=== PATIENT | male | born 1990 | race African-American/Black ===

== ENCOUNTER 2016-06-06 04:05 | Emergency (ER) | payer OTHER ==
[~2016-06-06] VITALS: Ht 170.2 cm; Wt 95.3 kg
[~2016-06-06 04:05] MED LIST: KEFLEX500 MG ORAL; NO HOME MEDS
[2016-06-06 04:30] VITALS: BP 118/78
[2016-06-06] MEDS ORDERED: KENALOG 0.025%15 GM APPLIC (04:39)
[2016-06-06] MEDS ORDERED: ACYCLOVIR800 MG ORAL (04:39)
[2016-06-06 04:51] VITALS: BP 118/78
--- NOTE | 2016-06-09 14:10 | Emergency Room Report ---
History of Present Illness General Chief Complaint: Male Urogenital Problems Source: Patient Present Illness HPI 25-year-old male presents to ED for evaluation of rash. Patient has rash to his perineal area x3 days. States was initially red and itchy but has since improved. Has not gone away completely but is healing. Denies any discharge. Denies any fevers or chills. Denies any known food or drug allergies. States he's been sexually active unprotected with multiple partners. Denies recent travel. No other aggravating or relieving factors. Denies any other associated symptom Allergies: Coded Allergies: No Known Allergies (Verified Allergy, Unknown, 02/27/06) Patient History Past Medical History: none Past Surgical History: none Pertinent Family History: none Social History: Denies: alcohol use, drug use, smoking Immunizations: UTD Reviewed Nursing Documentation: PMH: Agreed, PSxH: Agreed Nursing Documentation-PMH Past Medical History: No Stated History Review of Systems All Other Systems: negative except mentioned in HPI Physical Exam Vital Signs Date Time Temp Pulse Resp B/P Pulse Ox O2 Delivery O2 Flow Rate FiO2 06/06/16 04:17 97.9 71 14 118/78 98 Room Air Sp02 EP Interpretation: reviewed, normal General Appearance: no apparent distress, alert, GCS 15, non-toxic Head: normocephalic Eyes: bilateral eye PERRL, bilateral eye normal inspection ENT: normal ENT inspection Neck: normal inspection Respiratory: normal inspection Cardiovascular #1: normal inspection Gastrointestinal: normal inspection Rectal: deferred Genitourinary: no CVA tenderness, penis normal, scrotum normal Musculoskeletal: normal inspection Neurologic: alert, oriented x3, responsive, motor strength/tone normal, sensory intact, speech normal Psychiatric: normal inspection Skin: rash - healing macular rash to perineal area. nonerythematous. no discharge Lymphatic: normal inspection Medical Decision Making Diagnostic Impression: Primary Impression: Perineal rash, male ER Course Hospital Course 25-year-old male presents to ED with rash to perineal area Differential diagnoses include: Cellulitis, dermatitis, insect bite, abscess Clinical course Patient placed on stretcher. After initial history, physical exam reveals a young male in no acute distress. On exam there are multiple macular circular lesions noted to the perineal area. appears to be in healing stage. nonerythematous. likely STI related Diagnosis - perineal rash stable and discharged to home with prescription for acyclovir, triamcinolone. Instructed to followup with PMD. Instructed return to ED if symptoms recur or worsen Last Vital Signs Date Time Temp Pulse Resp B/P Pulse Ox O2 Delivery O2 Flow Rate FiO2 06/06/16 04:51 97.9 80 14 118/78 98 Room Air Status: improved Disposition: HOME, SELF-CARE Condition: Stable Scripts Acyclovir* (ZOVIRAX*) 800 Mg Tablet 800 MG ORAL FIVE TIMES A DAY for 7 Days, TAB Prov: GARFIELD GUEVARA M.D. 06/06/16 Triamcinolone Acet (Triamcinolone Acetonide) 15 Gm Cream..g. 15 GM APPLIC BID, #15 GM Prov: GARFIELD GUEVARA M.D. 06/06/16 Referrals: [facility],REFERRING (PCP) Patient Instructions: Genital Warts GARFIELD GUEVARA M.D. Jun 09, 2016 14:10
== END 2016-06-06 04:55 | disposition home or self-care (01) ==
LOC: EMR 04:26
DX: R21 Rash and other nonspecific skin eruption (principal)
CPT/HCPCS: 99284

== ENCOUNTER 2018-11-13 07:57 | Emergency (ER) | payer SELFPAY ==
[~2018-11-13] VITALS: Ht 167.6 cm; Wt 72.6 kg
[~2018-11-13 07:57] MED LIST changes: +ACYCLOVIR800 MG ORAL; +KENALOG 0.025%15 GM APPLIC
[2018-11-13 08:10] VITALS: BP 117/81
--- NOTE | 2018-11-13 08:10 | NUR ---
ED Nurse Note: ambulated into ED, reporting burning sensation while urinating and having whitish/yellowish discharge today. Pt reports having unprotected sex a week ago. a/ox4. NAD noted.
[2018-11-13] MEDS ORDERED: NKM (08:11)
--- NOTE | 2018-11-13 08:24 | Emergency Room Report ---
History of Present Illness General Chief Complaint: Male Urogenital Problems Source: Patient Present Illness HPI Patient presents with discharge after having unprotected sex about a week ago. He denies any fevers or lymphadenopathy. There is minimal dysuria. Patient denies medical problems. No fevers, chills, sore throat, chest pain, palpitations, nausea, vomiting, diarrhea, dysuria, abdominal pain, shortness of breath, joint pain, rashes, depression, anxiety, visual changes, headache. 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 He believes that one such encounter led to this problem. He denies HIV. Allergies: Coded Allergies: No Known Allergies (Verified Allergy, Unknown, 02/27/06) Patient History Past Medical History: see triage record Social History: Reports: smoking, drug use Social History Narrative Rapper Reviewed Nursing Documentation: PMH: Agreed; PSxH: Agreed Nursing Documentation-PM Past Medical History: No Stated History Review of Systems All Other Systems: negative except mentioned in HPI Physical Exam Vital Signs Date Time Temp Pulse Resp B/P (MAP) Pulse Ox O2 Delivery O2 Flow Rate FiO2 11/13/18 08:08 97.5 85 19 117/81 (93) 99 Room Air Sp02 EP Interpretation: reviewed, normal General Appearance: well appearing, no apparent distress, GCS 15 Head: normocephalic Eyes: bilateral eye normal inspection, bilateral eye PERRL ENT: moist mucus membranes Respiratory: normal inspection, speaking full sentences Cardiovascular #1: regular rate, rhythm Cardiovascular #2: 2+ radial (R) Gastrointestinal: normal inspection, non tender Genitourinary: no CVA tenderness, penis normal, scrotum normal, other - Circumcised no tenderness Musculoskeletal: gait/station normal Neurologic: alert, oriented x3, grossly normal Psychiatric: mood/affect normal Skin: other - Tattoos Lymphatic: no adenopathy Medical Decision Making Diagnostic Impression: Primary Impression: Urethritis Additional Impression: Possible exposure to STD ER Course Patient presents with discharge after unprotected sex. Differential includes chlamydia, gonorrhea amongst others. Urinalysis is indicated with chlamydia and GC testing. The patient will be treated with Rocephin and azithromycin. I advised the patient that he needs to wear protection in the future and also that he needs to follow-up to have further testing. Stable for outpatient observation and treatment. Laboratory Tests Test 11/13/18 08:10 11/13/18 08:20 Urine Color Yellow Urine Appearance Slightly cloudy Urine pH 5 (4.5-8.0) Urine Specific [place] 1.030 (1.005-1.035) Urine Protein 2+ (NEGATIVE) H Urine Glucose (UA) Negative (NEGATIVE) Urine Ketones 1+ (NEGATIVE) H Urine Blood 2+ (NEGATIVE) H Urine Nitrite Negative (NEGATIVE) Urine Bilirubin 1+ (NEGATIVE) H Urine Ictotest Negative (NEGATIVE) Urine Urobilinogen 4 MG/DL (0.0-1.0) H Urine Leukocyte Esterase 2+ (NEGATIVE) H Urine RBC 2-4 /HPF (0 - 0) H Urine WBC 20-30 /HPF (0 - 0) H Urine Squamous Epithelial Cells Occasional /LPF Urine Bacteria Few /HPF (NONE) Urine Mucus Moderate /LPF (NONE/OCC) H Chlamydia trachomatis RNA Pending Neisseria gonorrhoeae RNA Pending Last Vital Signs Date Time Temp Pulse Resp B/P (MAP) Pulse Ox O2 Delivery O2 Flow Rate FiO2 11/13/18 08:42 97.5 78 19 117/81 99 Room Air Status: improved Disposition: HOME, SELF-CARE Condition: Improved Referrals: [facility]/,REFERRING (PCP) Demetrius Rea MD Nov 13, 2018 08:24
[2018-11-13] MEDS ORDERED: Azithromycin 250mg tab ORAL SCH (08:30)
[2018-11-13] MEDS ORDERED: Lidocaine 1% MPF 10mg/ml 5ml INJ ONE (08:30)
[2018-11-13] MEDS ORDERED: Lidocaine 1% MPF 10mg/ml 5ml INJ SCH (08:30)
[2018-11-13] MEDS ORDERED: Azithromycin 250mg tab ORAL ONE (08:30)
[2018-11-13 08:32] LABS: APPEARANCE,URINE SLIGHTLY CLOUDY; BILIRUBIN, URINE 1+ (NEGATIVE); GLUCOSE, URINE (UA) NEGATIVE (NEGATIVE); KETONES,URINE 1+ (NEGATIVE); LEUKOCYTE ESTERASE ,URINE 2+ (NEGATIVE); NITRITE,URINE NEGATIVE (NEGATIVE); PH,URINE 5 (4.5-8.0); PROTEIN,URINE 2+ (NEGATIVE); UROBILINOGEN,URINE 4 MG/DL (0.0-1.0)
[2018-11-13 08:42] VITALS: BP 117/81
--- NOTE | 2018-11-13 08:43 | NUR ---
ED Nurse Note: Pt cleared by health care Provider for discharge. DC instructions/prescription was given and explained to pt and verbalized understanding of teachings. All medical deviecs such as ID band removed. Pt is AAO x4, ambulatory and left with all personal belongings.
[2018-11-13 08:47] LABS: COLOR,URINE YELLOW
== END 2018-11-13 08:43 | disposition home or self-care (01) ==
LOC: EMR 08:16
DX: N34.2 Other urethritis (principal); Z20.2 Contact with and (suspected) exposure to infections with a predominantly sexual mode of transmission; Z87.891 Personal history of nicotine dependence
CPT/HCPCS: 81003; 87086; 87491; 87590; 96372; 99283; J0696

== ENCOUNTER 2019-03-07 04:42 | Emergency (ER) | payer SELFPAY ==
[~2019-03-07] VITALS: Ht 172.7 cm; Wt 86.2 kg
[~2019-03-07 04:42] MED LIST changes: +NKM
[2019-03-07 04:56] VITALS: BP 106/62
--- NOTE | 2019-03-07 04:59 | NUR ---
ED Nurse Note: Patient walked in to ER c/o boil on his left buttox. AAO x4, VSS at this time.
[2019-03-07] MEDS ORDERED: BACTRIM DS TAB1 EAC1 ORAL (05:25)
[2019-03-07] MEDS ORDERED: MUPIROCIN22 GM TOPIC (05:25)
--- NOTE | 2019-03-07 05:25 | Emergency Room Report ---
History of Present Illness General Chief Complaint: General Complaint Source: Patient Present Illness HPI This a 28-year-old male with no past medical history. He presents with chief complaint of a boil to his left buttock. Onset for last 4 days. He tried to pop it and has little bit of drainage but now more swollen. Painful to sit on it. No fever chills but no nausea no vomiting. Never had this problem before. Allergies: Coded Allergies: No Known Allergies (Verified Allergy, Unknown, 02/27/06) Patient History Past Medical History: see triage record, old chart reviewed Past Surgical History: none Pertinent Family History: none Social History: Denies: smoking Immunizations: other Reviewed Nursing Documentation: PMH: Agreed; PSxH: Agreed Nursing Documentation-PMH Past Medical History: No Stated History Review of Systems Eye: Denies: eye pain, blurred vision ENT: Denies: ear pain, nose congestion, throat swelling Respiratory: Denies: cough, shortness of breath Cardiovascular: Denies: chest pain, palpitations Gastrointestinal: Denies: abdominal pain, diarrhea, nausea, vomiting Musculoskeletal: Denies: back pain, joint pain Skin: Denies: rash Neurological: Denies: headache, numbness Endocrine: Denies: increased thirst, increased urine Hematologic/Lymphatic: Denies: easy bruising All Other Systems: negative except mentioned in HPI Physical Exam Vital Signs Date Time Temp Pulse Resp B/P (MAP) Pulse Ox O2 Delivery O2 Flow Rate FiO2 03/07/19 04:47 98.1 112 18 106/62 (77) 95 Room Air Vitals unremarkable Sp02 EP Interpretation: reviewed, normal General Appearance: well appearing, no apparent distress, alert Head: normocephalic, atraumatic Eyes: bilateral eye PERRL, bilateral eye EOMI ENT: hearing grossly normal, normal pharynx Neck: full range of motion, supple, no meningismus Respiratory: chest non-tender, lungs clear, normal breath sounds Cardiovascular #1: regular rate, rhythm, no murmur Gastrointestinal: normal bowel sounds, non tender, no mass, no organomegaly, no bruit, non-distended Rectal: other - Left buttock: There is an indurated area of 3 cm with central ulceration. Musculoskeletal: back normal, normal range of motion, gait/station normal Psychiatric: mood/affect normal Procedures Incision and Drainage Incision and Drainage : Consent: Verbal Site: Buttock Blade Size: 11 I & D Procedure: betadine prep Wound Location: other - buttock Patient Tolerated: Well Complications: None Progress Area cleaned with Betadine. Local anesthetic with 1% pain with epinephrine. I injected about 2 cc. I made a 2 cm incision. Moderate met of pus expressed. Loculated area broken up. Area irrigated. Patient tolerated procedure without any problem. Wound dressed. Medical Decision Making Diagnostic Impression: Primary Impression: Abscess ER Course This patient presents with a superficial abscess. No deep infection. No necrotizing fasciitis. Will discharge home. Last Vital Signs Date Time Temp Pulse Resp B/P (MAP) Pulse Ox O2 Delivery O2 Flow Rate FiO2 03/07/19 04:56 98.1 18 106/62 95 Room Air 03/07/19 04:56 112 Status: improved Disposition: HOME, SELF-CARE Condition: Stable Scripts Mupirocin* (MUPIROCIN*) 22 Gm Oint...g. 1 APPLIC TOPIC THREE TIMES A DAY, #22 GM Prov: Dorian Sandhu MD 03/07/19 Trimethoprim/Sulfamethoxazole 160/800* (BACTRIM DS TABLET*) 1 Each Tablet 1 TAB ORAL Q12H, #14 TAB 0 Refills Prov: Dorian Sandhu MD 03/07/19 Additional Instructions: Keep wound clean. Clean first with hydrogen peroxide. Then apply antibiotic ointment. Then put on a large Band-Aid. Follow-up for recheck in 3 to 5 days. Return if symptoms worsen. Dorian Sandhu MD Mar 07, 2019 05:25
[2019-03-07 05:27] VITALS: BP 125/67
[2019-03-07] MEDS ORDERED: Bactrim-DS 1 tab ORAL ONE (05:30)
== END 2019-03-07 05:28 | disposition home or self-care (01) ==
LOC: EMR 05:21
DX: L02.31 Cutaneous abscess of buttock (principal)
CPT/HCPCS: 99283

== ENCOUNTER → 2019-05-03 | Emergency (ER) | payer SELFPAY ==
[~2019-05-03] VITALS: Ht 172.7 cm; Wt 86.2 kg
[~2019-05-03] MED LIST changes: +BACTRIM DS TAB1 EAC1 ORAL; +CEPHALEXIN500 MG ORAL; +IBUPROFEN600 MG ORAL; +MUPIROCIN22 GM TOPIC
--- NOTE | 2019-05-03 11:20 | NUR ---
ED Nurse Note: Pt ambulated to ed c/o lower right back boil. pt states boil popped on its on and is bleeding and now it hurts. Placed on bed
[2019-05-03 11:44] VITALS: BP 144/95
--- NOTE | 2019-05-03 12:16 | Emergency Room Report ---
History of Present Illness General Chief Complaint: Skin Rash/Abscess Source: Patient Present Illness HPI 28-year-old male presents with right butt cheek pain x1 week patient was seen in outside hospital no acute indications for antibiotics they stated that he may have cellulitis and may develop an abscess later on patient now presents today for drainage, no fevers no chills patient presents for evaluation he endorses right sharp buttock pain aggravated with touching it alleviated by not touching it severity is moderate, intermittent Allergies: Coded Allergies: No Known Allergies (Verified Allergy, Unknown, 02/27/06) Patient History Past Medical History: see triage record Reviewed Nursing Documentation: PMH: Agreed; PSxH: Agreed Nursing Documentation-PMH Past Medical History: No Stated History Review of Systems All Other Systems: negative except mentioned in HPI Physical Exam Vital Signs Date Time Temp Pulse Resp B/P (MAP) Pulse Ox O2 Delivery O2 Flow Rate FiO2 05/03/19 11:15 98.2 94 16 144/95 (111) 100 Room Air General Appearance: well appearing, no apparent distress Head: normocephalic, atraumatic ENT: hearing grossly normal, normal voice Neck: full range of motion, supple Respiratory: no respiratory distress, speaking full sentences Neurologic: alert, normal gait Psychiatric: mood/affect normal Skin: other - Right buttock, abscess present measuring 2 x 2 cm Procedures Incision and Drainage Incision and Drainage : Consent: Verbal Site: Right Buttock Blade Size: 11 I & D Procedure: betadine prep, sterile drapes applied, sterile dressing applied, gauze wick placed Wound Location: other - Right buttock Wound's Depth, Shape: superficial Wound Length (cm): 2 Wound Explored: Pus inside Irrigated w/ Saline (ccs): 100 Anesthesia: 1% Lidocaine Volume Anesthetic (ccs): 10 Patient Tolerated: Well Complications: None Medical Decision Making Diagnostic Impression: Primary Impression: Abscess of buttock, right ER Course 28-year-old male presents with right buttock pain differential diagnosis includes cellulitis, abscess, Patient with an abscess incision and drainage tolerated the procedure well packing placed Disposition home with return precautions packing removal in 3 days Last Vital Signs Date Time Temp Pulse Resp B/P (MAP) Pulse Ox O2 Delivery O2 Flow Rate FiO2 05/03/19 11:44 98.2 16 144/95 100 Room Air 05/03/19 11:15 94 Disposition: HOME, SELF-CARE Condition: Stable Scripts Trimethoprim/Sulfamethoxazole 160/800* (BACTRIM DS TABLET*) 1 Each Tablet 1 TAB ORAL Q12H, #20 TAB 0 Refills Prov: Avelino Berg MD 05/03/19 Referrals: [facility] Brent Rezape[facility] Patient Instructions: Abscess Additional Instructions: The patient was provided with discharge instructions, notified to follow-up with a primary care doctor and or specialist in the next 24-48 hours, and to return to the ED if they have worsening of their symptoms. Please note that this report is being documented using DRAGON technology. This can lead to erroneous entry secondary to incorrect interpretation by the dictating instrument. Please return to the emergency room 05/06/2019 for packing removal Avelino Berg MD May 03, 2019 12:16
[2019-05-03 12:18] VITALS: BP 142/94
--- NOTE | 2019-05-03 12:18 | NUR ---
ER DISCHARGE NOTE: Patient is cleared to be discharged per ERMD, pt is aox4, on room air, with stable vital signs. pt was given dc and prescription instructions, pt was able to verbalize understanding, pt id band removed. pt is able to ambulate with steady gait. pt took all belongings.
== END | disposition home or self-care (01) ==
LOC: EMR 12:14
DX: L02.31 Cutaneous abscess of buttock (principal)
CPT/HCPCS: 99283

== ENCOUNTER 2019-05-04 19:43 | Emergency (ER) | payer SELFPAY ==
[~2019-05-04] VITALS: Ht 172.7 cm; Wt 86.2 kg
[~2019-05-04 19:43] MED LIST changes: -CEPHALEXIN500 MG ORAL; -IBUPROFEN600 MG ORAL
[2019-05-04 19:55] VITALS: BP_SYST 122; BP_SYST 132; BP_DIAS 82; BP_DIAS 85
--- NOTE | 2019-05-04 19:55 | NUR ---
ED Nurse Note: Patient walked in from home d/t right buttock boil, pt was in [facility] ER yesterday and boil was drained and packed. Patient aao x 4 and ambulatory with steady gait. Patient states boil is still bleeding and is very painful 9/10 aching pain. Patient stable upon assessment.
--- NOTE | 2019-05-04 20:09 | NUR ---
ED Nurse Note: ERMD at bedside.
[2019-05-04] MEDS ORDERED: CEPHALEXIN500 MG ORAL (20:13)
[2019-05-04] MEDS ORDERED: IBUPROFEN600 MG ORAL (20:13)
--- NOTE | 2019-05-04 20:18 | Emergency Room Report ---
History of Present Illness General Chief Complaint: Skin Rash/Abscess Source: Patient Present Illness HPI Patient is a 28-year-old male denies any significant past medical history who presents to the ER complaining of right buttock pain. Patient states that he had a boil there for the past week and had it "popped" here yesterday. Patient was given Bactrim as well as topical antibiotics. Patient was supposed to return in 2 days but returned today because his gauze soaked through. He complains of localized pain to the area. He denies any fever or chills. He denies any worsening of symptoms. Allergies: Coded Allergies: No Known Allergies (Verified Allergy, Unknown, 02/27/06) Patient History Past Medical History: none Past Surgical History: none Nursing Documentation-PM Past Medical History: No Stated History Hx Cardiac Problems: No Hx Hypertension: No Hx Pacemaker: No Hx Asthma: No Hx COPD: No Hx Diabetes: No Hx Cancer: No Hx Gastrointestinal Problems: No Hx Dialysis: No History Of Psychiatric Problem: No Hx Neurological Problems: No Hx Cerebrovascular Accident: No Hx Seizures: No Review of Systems All Other Systems: negative except mentioned in HPI Physical Exam Vital Signs Date Time Temp Pulse Resp B/P (MAP) Pulse Ox O2 Delivery O2 Flow Rate FiO2 05/04/19 19:55 99.0 87 20 132/85 98 Room Air Sp02 EP Interpretation: reviewed, normal General Appearance: no apparent distress, alert, GCS 15, non-toxic Head: normocephalic, atraumatic Eyes: bilateral eye normal inspection, bilateral eye PERRL ENT: hearing grossly normal, normal pharynx, no angioedema, normal voice Neck: full range of motion, supple/symm/no masses Respiratory: chest non-tender, lungs clear, normal breath sounds, speaking full sentences Cardiovascular #1: regular rate, rhythm, no edema Gastrointestinal: normal bowel sounds, non tender, soft, non-distended, no guarding, no rebound Rectal: deferred, other - Right buttock abscess with packing in place mild tenderness to palpation with bloody purulent discharge, Disability Attorney by YUNIER Uriarte Genitourinary: normal inspection, no CVA tenderness Musculoskeletal: back normal, normal range of motion, calf tenderness, gait/ station normal, non-tender Neurologic: alert, motor strength/tone normal, oriented x3, sensory intact, responsive, speech normal Psychiatric: judgement/insight normal, memory normal, mood/affect normal, no suicidal/homicidal ideation Medical Decision Making Diagnostic Impression: Primary Impression: Abscess of buttock, right ER Course I remove the packing and expressed more purulent discharge from the abscess. Patient states that it felt better after that. Wound was cleaned and repacked. Patient advised to return to the ER in 2 days for packing removal and wound care. Patient already on Bactrim. I have given him a prescription for Keflex as well as Motrin for pain relief. After discussing risks and benefits of further diagnostics, treatment plans, as well as indications for and risks of admission, the patient is agreeable to being discharged home. I have explained that their evaluation and treatment in the emergency department today is an important step towards them achieving better health but that their evaluation today is not intended to replace further evaluation and treatment by a physician in their local clinic. I have explained that while the current findings suggest no immediate life threatening emergency they will require further evaluation and treatment by a physician of their choice in their area. They understand that it will be necessary for them to review the final reports of their ED visit with their clinic physician. We have reviewed indications for return to the Emergency Department. I have explained that additional time may need to pass and/or additional testing as an outpatient may be necessary before a definitive diagnosis can be made. They tell me they are willing to follow up as instructed within the timeframe I recommend. They appear to understand what we discussed. Additionally they understand that if they are unable to be seen by an outpatient physician they are welcome, and in fact should, return to the Emergency Department for a repeat evaluation. The patient is stable at time of discharge. Last Vital Signs Date Time Temp Pulse Resp B/P (MAP) Pulse Ox O2 Delivery O2 Flow Rate FiO2 05/04/19 19:56 98.4 95 17 114/67 (83) 97 Room Air Disposition: HOME, SELF-CARE Condition: Stable Scripts Ibuprofen* (MOTRIN*) 600 Mg Tablet 600 MG ORAL Q8H PRN for For Pain, #30 TAB 0 Refills Prov: Rebeca Loomis M.D. 05/04/19 Cephalexin* (KEFLEX*) 500 Mg Capsule 500 MG ORAL EVERY 6 HOURS for 10 Days, CAP Prov: Rebeca Loomis M.D. 05/04/19 Referrals: [facility] Brent Méndez. [facility] Patient Instructions: Abscess Additional Instructions: The patient was provided with discharge instructions, notified to follow-up with a primary care doctor and or specialist in the next 24-48 hours, and to return to the ED if they have worsening of their symptoms. Please note that this report is being documented using DRAGON technology. This can lead to erroneous entry secondary to incorrect interpretation by the dictating instrument. Rebeca Loomis M.D. May 04, 2019 20:18
[2019-05-04 20:20] VITALS: BP 115/78
--- NOTE | 2019-05-04 20:20 | NUR ---
ER DISCHARGE NOTE: Patient is cleared to be discharged per ERMD, pt is aox4, on room air, with stable vital signs. pt was given dc and prescription instructions, pt was able to verbalize understanding, pt id band removed. pt is able to ambulate with steady gait. pt took all belongings. pt stable upon discharge.
== END 2019-05-04 20:20 | disposition home or self-care (01) ==
LOC: EMR 20:16
DX: L02.31 Cutaneous abscess of buttock (principal)
CPT/HCPCS: 99281

== ENCOUNTER 2019-08-07 04:59 | Emergency (ER) | payer SELFPAY ==
[~2019-08-07] VITALS: Ht 172.7 cm; Wt 77.1 kg
[~2019-08-07 04:59] MED LIST changes: +CEPHALEXIN500 MG ORAL; +IBUPROFEN600 MG ORAL
[2019-08-07 05:00] VITALS: BP 123/74
--- NOTE | 2019-08-07 05:27 | Emergency Room Report ---
History of Present Illness General Chief Complaint: Male Urogenital Problems Source: Patient Present Illness [facility] This is a 28-year-old male with no medical problems. He presents with chief plaint of penile discharge. Onset for last couple days. Harris were to urinate. Discharge is yellowish in nature. He has been sexually active with multiple partners. Unprotected sex. History of STD in the past. Denies any other complaint. Urinating made it worse. Allergies: Coded Allergies: No Known Allergies (Verified Allergy, Unknown, 02/27/06) COVID-19 Screening Contact w/high risk pt: No Recent Travel to affected area: No Experienced COVID-19 symptoms?: No COVID-19 Testing performed [employer]: No Patient History Past Medical History: see triage record, old chart reviewed Past Surgical History: none Pertinent Family History: none Social History: Denies: smoking Immunizations: other Reviewed Nursing Documentation: PMH: Agreed; PSxH: Agreed Nursing Documentation-PMH Hx Cardiac Problems: No Hx Hypertension: No Hx Pacemaker: No Hx Asthma: No Hx COPD: No Hx Diabetes: No Hx Cancer: No Hx Gastrointestinal Problems: No Hx Dialysis: No Hx Neurological Problems: No Hx Cerebrovascular Accident: No Hx Seizures: No Review of Systems Eye: Denies: eye pain, blurred vision ENT: Denies: ear pain, nose congestion, throat swelling Respiratory: Denies: cough, shortness of breath Cardiovascular: Denies: chest pain, palpitations Gastrointestinal: Denies: abdominal pain, diarrhea, nausea, vomiting Genitourinary: Reports: discharge, dysuria Musculoskeletal: Denies: back pain, joint pain Skin: Denies: rash Neurological: Denies: headache, numbness Endocrine: Denies: increased thirst, increased urine Hematologic/Lymphatic: Denies: easy bruising All Other Systems: negative except mentioned in HPI Physical Exam Vital Signs Date Time Temp Pulse Resp B/P (MAP) Pulse Ox O2 Delivery O2 Flow Rate FiO2 08/07/19 05:03 97.3 82 16 118/78 (91) 97 Room Air Vitals normal Sp02 EP Interpretation: reviewed, normal General Appearance: well appearing, no apparent distress, alert Head: normocephalic, atraumatic Eyes: bilateral eye PERRL, bilateral eye EOMI ENT: hearing grossly normal, normal pharynx Neck: full range of motion, supple, no meningismus Respiratory: chest non-tender, lungs clear, normal breath sounds Cardiovascular #1: regular rate, rhythm, no murmur Gastrointestinal: normal bowel sounds, non tender, no mass, no organomegaly, no bruit, non-distended Musculoskeletal: back normal, normal range of motion, gait/station normal Psychiatric: mood/affect normal Medical Decision Making Diagnostic Impression: Primary Impression: Urethritis ER Course This patient presents with acute urethritis. Most likely gonorrhea in nature. No evidence of systemic spread. Recommend outpatient testing for HIV, hepatitis , syphilis and other STDs. Last Vital Signs Date Time Temp Pulse Resp B/P (MAP) Pulse Ox O2 Delivery O2 Flow Rate FiO2 08/07/19 05:03 97.3 82 16 118/78 (91) 97 Room Air Status: improved Disposition: HOME, SELF-CARE Condition: Stable Patient Instructions: Urethritis, Adult Additional Instructions: Use condoms at all time. Recommend having your partners treated also. Recommend outpatient testing for HIV, hepatitis, syphilis and other STDs. Follow-up with your doctor in 7 days as needed. Return if worse. Dorian Sandhu MD Aug 07, 2019 05:27
[2019-08-07] MEDS ORDERED: Azithromycin 250mg tab ORAL ONE (05:30)
[2019-08-07] MEDS ORDERED: Lidocaine 1% MPF 10mg/ml 5ml INJ ONE (05:30)
[2019-08-07 05:35] VITALS: BP 118/78
== END 2019-08-07 05:35 | disposition home or self-care (01) ==
LOC: EMR 05:26
DX: N34.2 Other urethritis (principal)
CPT/HCPCS: 96372; 96374; 99284; J0696